=== PATIENT | male | born 1995 | race Caucasian/White ===

== ENCOUNTER 2019-03-10 18:13 | Emergency (ER) | payer MEDICAID ==
[~2019-03-10] VITALS: Ht 190.5 cm; Wt 84.1 kg
[2019-03-10 18:30] VITALS: BP 142/83
[2019-03-10] MEDS ORDERED: CEPH500C5 PO (21:11)
[2019-03-10] MEDS ORDERED: MUPI22OI30 TOP (21:11)
== END 2019-03-10 21:21 | disposition home or self-care (01) ==
LOC: ER 18:14
DX: L01.00 Impetigo, unspecified (principal); E11.9 Type 2 diabetes mellitus without complications; Z79.2 Long term (current) use of antibiotics
CPT/HCPCS: 99283

== ENCOUNTER 2020-03-13 02:11 | Emergency (ER) | payer MEDICAID ==
[~2020-03-13] VITALS: Ht 188 cm; Wt 77.0 kg
[2020-03-13 02:47] VITALS: BP 135/93
[2020-03-13 06:05] LABS: OCCULT BLOOD STOOL POSITIVE (Neg)
== END 2020-03-13 02:49 | disposition home or self-care (01) ==
LOC: ER 02:12
DX: K62.5 Hemorrhage of anus and rectum (principal); R19.5 Other fecal abnormalities; E11.9 Type 2 diabetes mellitus without complications
CPT/HCPCS: 82272; 99283

== ENCOUNTER 2020-06-08 14:44 | Emergency (ER) | payer MEDICAID ==
[~2020-06-08] VITALS: Ht 190.5 cm; Wt 75.0 kg
[2020-06-08 15:07] VITALS: BP 149/77
[2020-06-08] MEDS ORDERED: SULF1TAB49 PO (15:31)
== END 2020-06-08 15:35 | disposition home or self-care (01) ==
LOC: ER 14:45
DX: L02.413 Cutaneous abscess of right upper limb (principal); E11.9 Type 2 diabetes mellitus without complications; F17.200 Nicotine dependence, unspecified, uncomplicated; F15.90 Other stimulant use, unspecified, uncomplicated; Z79.899 Other long term (current) drug therapy
CPT/HCPCS: 99283

== ENCOUNTER 2020-06-11 02:16 | Emergency (ER) | payer MEDICAID ==
[~2020-06-11] VITALS: Ht 190.5 cm; Wt 75.0 kg
[~2020-06-11 02:16] MED LIST: SULF1TAB49 PO
[2020-06-11 02:18] VITALS: BP 122/88
[2020-06-11] MEDS ORDERED: LIDOcaine 1% W/epiNEPHrine 1:200,000 10ml vial IJ ONE (03:50)
[2020-06-11] MEDS ORDERED: TETanus/Pertussis (Acell)/Diphther VAC/PF (Tdap-Adult) 0.5ml syringe IMVAC ONE (03:50)
[2020-06-11] MEDS ORDERED: HYDROcodone/acetaminophen 10/325mg tab PO STA (04:01)
[2020-06-11] MEDS ORDERED: LORazepam 1 MG tablet PO STA (04:01)
--- NOTE | 2020-06-11 04:24 | NUR ---
large amount of purulent dc from wound.
[2020-06-11] MEDS ORDERED: HYDR-3965 PO (04:29)
== END 2020-06-11 04:35 | disposition home or self-care (01) ==
LOC: ER 02:17
DX: L02.433 Carbuncle of right upper limb (principal); E11.9 Type 2 diabetes mellitus without complications; F15.90 Other stimulant use, unspecified, uncomplicated; Z79.2 Long term (current) use of antibiotics; Z79.899 Other long term (current) drug therapy
CPT/HCPCS: 10060; 90471; 90715; 99283

== ENCOUNTER 2021-01-10 03:33 | Emergency (ER) | payer MEDICAID ==
[~2021-01-10] VITALS: Ht 188 cm; Wt 80.0 kg
[2021-01-10 03:38] VITALS: BP 119/61
== END 2021-01-10 05:16 | disposition left against medical advice (07) ==
LOC: ER 03:33
DX: R21 Rash and other nonspecific skin eruption (principal); Z53.21 Procedure and treatment not carried out due to patient leaving prior to being seen by health care provider

== ENCOUNTER 2021-01-13 12:57 | Emergency (ER) | payer MEDICAID ==
[~2021-01-13] VITALS: Ht 188 cm; Wt 75.0 kg
[2021-01-13 13:22] VITALS: BP 119/71
[2021-01-13] MEDS ORDERED: LIDOcaine 1% W/epiNEPHrine 1:200,000 10ml vial IJ ONE (17:05)
[2021-01-13] MEDS ORDERED: SULF1TAB49 PO (17:21)
== END 2021-01-13 17:33 | disposition home or self-care (01) ==
LOC: ER 12:58
DX: L02.611 Cutaneous abscess of right foot (principal); M79.661 Pain in right lower leg; F15.90 Other stimulant use, unspecified, uncomplicated; Z79.2 Long term (current) use of antibiotics
CPT/HCPCS: 10060; 99283

== ENCOUNTER 2021-04-25 | Emergency (ER) | payer MEDICAID ==
[~2021-04-25] VITALS: Ht 188 cm; Wt 72.7 kg
[2021-04-25 00:09] VITALS: BP 134/78
[2021-04-25] MEDS ORDERED: HYDR20OI TOP (00:41)
== END 2021-04-25 00:51 | disposition home or self-care (01) ==
LOC: ER 00:01
DX: L23.7 Allergic contact dermatitis due to plants, except food (principal); E11.9 Type 2 diabetes mellitus without complications; F15.90 Other stimulant use, unspecified, uncomplicated
CPT/HCPCS: 99283

== ENCOUNTER 2021-10-22 15:55 | Emergency (ER) | payer MEDICAID ==
[~2021-10-22] VITALS: Ht 188 cm; Wt 72.7 kg
[~2021-10-22 15:55] MED LIST changes: +HYDR20OI TOP; -SULF1TAB49 PO
[2021-10-22] MEDS ORDERED: NALO4SPR BOTHNARES (16:09)
[2021-10-22] MEDS ORDERED: ondansetron 4mg rapidly disintigrating tab PO ONE (17:30)
[2021-10-22 18:21] VITALS: BP 125/85
== END 2021-10-22 17:10 | disposition home or self-care (01) ==
LOC: ER 15:56
DX: T40.2X1A Poisoning by other opioids, accidental (unintentional), initial encounter (principal); R41.82 Altered mental status, unspecified; E11.9 Type 2 diabetes mellitus without complications; Y92.89 Other specified places as the place of occurrence of the external cause
CPT/HCPCS: 99283

== ENCOUNTER 2023-06-13 14:25 | Emergency (ER) | payer MEDICAID ==
[~2023-06-13 14:25] MED LIST changes: +NALO4SPR BOTHNARES
== END 2023-06-13 18:31 | disposition left against medical advice (07) ==
LOC: ER 14:25
DX: M79.646 Pain in unspecified finger(s) (principal); Z53.21 Procedure and treatment not carried out due to patient leaving prior to being seen by health care provider

== ENCOUNTER 2023-07-08 08:55 | Emergency (ER) | payer MEDICAID ==
[~2023-07-08] VITALS: Ht 188 cm; Wt 109.1 kg
[2023-07-08 08:57] VITALS: BP 122/75; PULSE 86; RESP 20; O2SAT 98
[2023-07-08] MEDS ORDERED: ibuprofen tablet 400 MG TABLET PO ONE (09:25)
[2023-07-08] MEDS: ibuprofen 200mg tablet PO ONE (09:28)
[2023-07-08 11:17] VITALS: TEMP 100.1
== END 2023-07-08 11:21 | disposition home or self-care (01) ==
LOC: ER 08:55
DX: B34.9 Viral infection, unspecified (principal); F15.90 Other stimulant use, unspecified, uncomplicated; E11.9 Type 2 diabetes mellitus without complications; R53.1 Weakness; Z20.822 Contact with and (suspected) exposure to COVID-19
CPT/HCPCS: 36415; 87502; 87503; 87811; 99283

== ENCOUNTER 2023-07-10 08:45 | Emergency (ER) | payer MEDICAID ==
[~2023-07-10] VITALS: Ht 188 cm; Wt 109.1 kg
[2023-07-10 09:10] VITALS: BP 116/84; PULSE 87; RESP 18; O2SAT 98
[2023-07-10 09:45] VITALS: TEMP 98.5
== END 2023-07-10 09:47 | disposition home or self-care (01) ==
LOC: ER 08:45
DX: B34.9 Viral infection, unspecified (principal); E11.9 Type 2 diabetes mellitus without complications; F15.90 Other stimulant use, unspecified, uncomplicated; Z79.899 Other long term (current) drug therapy
CPT/HCPCS: 71045; 99283